=== PATIENT | male | born 1960 | race Caucasian/White ===

== ENCOUNTER 2019-09-08 12:00 | Observation (INO) ==
[2019-09-08] MEDS ORDERED: Morphine Sulfate 2 MG/ML SYRINGE IVP ONE ×2 (12:16→13:35)
[2019-09-08] MEDS ORDERED: Ondansetron 4 MG/2 ML VIAL IVP ONE (12:16)
[2019-09-08] MEDS: 0.9 % Sodium Chloride 1,000 ML IVC SCH ×2 (12:23→19:56)
[2019-09-08 12:36] LABS: Basophils # 0.1 K/mcL (0.0-0.2); Basophils % 0.6 %; Eosinophils # 0.2 K/mcL (0.0-0.6); Eosinophils % 2.1 %; Hematocrit 43.9 % (37.5-50.1); Hemoglobin 15.5 g/dL (12.9-16.9); Immature Granulocytes % 0.9 % (0-4); Lymphocytes # 2.4 K/mcL (0.6-4.6); Lymphocytes % 27.1 %; Mean Corpuscular HGB Conc 35.3 g/dL (31.6-35.5); Mean Corpuscular Hemoglobin 29.9 pg (28.0-33.3); Mean Corpuscular Volume 84.6 fL (83.0-100.0); Mean Platelet Volume 9.6 fL (9.4-12.4); Monocytes # 0.7 K/mcL (0.0-1.3); Neutrophils # 5.5 K/mcL (1.6-8.9); Platelet Count 231 K/mcL (140-400); Red Blood Count 5.19 M/mcL (4.19-5.50); Red Cell Distribution Width 15.7 % (11.5-14.5); Segmented Neutrophils % 61.3 %
[2019-09-08 12:47] LABS: Activated Partial Thrombo Time 34.6 Seconds (26.0-36.0)
[2019-09-08 12:55] LABS: Alanine Aminotransferase 14 Units/L (7-52); Albumin 3.9 g/dL (3.5-5.7); Albumin/Globulin Ratio 1.3 (1.1-2.2); Alkaline Phosphatase 89 Units/L (34-104); Aspartate Amino Transferase 12 Units/L (13-39); BUN/Creatinine Ratio 15 (6-26); Bilirubin,Total 0.5 mg/dL (0.3-1.0); Blood Urea Nitrogen 15 mg/dL (8-23); Calcium 9.7 mg/dL (8.6-10.3); Carbon Dioxide 27 mEq/L (23-29); Chloride 98 mEq/L (98-107); Creatine Kinase 58 Units/L (30-223); Globulin 3.1 g/dL (2.4-3.5); Glucose 250 mg/dL (70-105); Osmolality,Calculated 287 (280-300); Potassium 4.1 mEq/L (3.5-5.1); Sodium 134 mEq/L (136-145); eGFR For African Americans > 60 (> 60); eGFR For Non-African Americans > 60 (> 60)
[2019-09-08 12:57] LABS: Troponin I < 0.03 ng/mL (< 0.04)
[2019-09-08] MEDS ORDERED: Nitroglycerin 1 INCH/GM PACKET ONE (13:04)
[2019-09-08] MEDS: Nitroglycerin 1 INCH/GM PACKET TP ONE ×2 (13:06→13:16)
[2019-09-08] MEDS ORDERED: *HR* Dextrose 50 % in Water (Vial) 50 ML VIAL IVP PRN (17:18)
[2019-09-08] MEDS ORDERED: Dextrose Gel 15 GM/37.5 ML TUBE PO PRN ×2 (17:18)
[2019-09-08] MEDS ORDERED: D5% in Water 1,000 ML IVC PRN (17:18)
[2019-09-08] MEDS: Insulin LISPRO 300 UNITS/3 ML VIAL SQ SCH (18:05)
[2019-09-08] MEDS: Ranolazine 500 MG TAB.ER.12H PO SCH (20:37)
[2019-09-08] MEDS ORDERED: Ranolazine 500 MG TAB.ER.12H PO SCH (21:00)
[2019-09-08] MEDS ORDERED: traZODone 50 MG TABLET PO SCH (21:00)
[2019-09-08] MEDS ORDERED: Insulin LISPRO 300 UNITS/3 ML VIAL SQ SCH (21:00)
[2019-09-08] MEDS ORDERED: Insulin DETEMIR 100 UNIT/ML per UNIT SQ ONE (21:00)
[2019-09-08] MEDS ORDERED: NON-FORMULARY MEDICATION 1 EACH EACH (Insulin Aspart Prot/Insuln Asp [Novolog Mix 70-30 Fl SQ SCH (21:00)
[2019-09-08] MEDS: OMEGA ACID ETHYL ESTERS PO SCH (21:15)
[2019-09-08] MEDS: Morphine Sulfate 2 MG/ML SYRINGE IVP PRN (21:21)
[2019-09-08] MEDS: Budesonide/Formoterol 160/4.5 1 PUFF INH IH SCH (21:46)
[2019-09-09] MEDS: 0.9 % Sodium Chloride 1,000 ML IVC SCH ×2 (04:23→12:56)
[2019-09-09 06:07] LABS: Basophils % 0.6 %; Eosinophils # 0.2 K/mcL (0.0-0.6); Eosinophils % 2.4 %; Hemoglobin 13.3 g/dL (12.9-16.9); Immature Granulocytes % 0.7 % (0-4); Lymphocytes # 2.6 K/mcL (0.6-4.6); Mean Corpuscular HGB Conc 34.1 g/dL (31.6-35.5); Mean Corpuscular Hemoglobin 29.8 pg (28.0-33.3); Mean Corpuscular Volume 87.4 fL (83.0-100.0); Mean Platelet Volume 9.4 fL (9.4-12.4); Monocytes # 0.6 K/mcL (0.0-1.3); Neutrophils # 3.7 K/mcL (1.6-8.9); Platelet Count 192 K/mcL (140-400); Red Blood Count 4.46 M/mcL (4.19-5.50); Red Cell Distribution Width 15.9 % (11.5-14.5); Segmented Neutrophils % 51.3 %; White Blood Count 7.1 K/mcL (4.3-11.1)
[2019-09-09] MEDS: Morphine Sulfate 2 MG/ML SYRINGE IVP PRN (06:22)
[2019-09-09 06:26] LABS: BUN/Creatinine Ratio 13 (6-26); Blood Urea Nitrogen 13 mg/dL (8-23); Calcium 8.4 mg/dL (8.6-10.3); Carbon Dioxide 30 mEq/L (23-29); Chloride 101 mEq/L (98-107); Chol/HDL Ratio 9.3 (0-4.9); Glucose 162 mg/dL (70-105); Osmolality,Calculated 286 (280-300); Potassium 3.9 mEq/L (3.5-5.1); Sodium 136 mEq/L (136-145); eGFR For African Americans > 60 (> 60); eGFR For Non-African Americans > 60 (> 60)
[2019-09-09] MEDS ORDERED: Ondansetron 4 MG/2 ML VIAL IVP ONE (07:27)
[2019-09-09] MEDS ORDERED: Tiotropium 18 MCG inhalation IH ONE (07:43)
[2019-09-09] MEDS: Budesonide/Formoterol 160/4.5 1 PUFF INH IH SCH (07:47)
[2019-09-09] MEDS: Insulin LISPRO 300 UNITS/3 ML VIAL SQ SCH ×3 (08:15→17:13)
[2019-09-09] MEDS: OMEGA ACID ETHYL ESTERS PO SCH (08:35)
[2019-09-09] MEDS: Ranolazine 500 MG TAB.ER.12H PO SCH (08:45)
[2019-09-09 09:00] LABS: Estimated Average Glucose 249 mg/dl
[2019-09-09] MEDS ORDERED: Aspirin Enteric Coated 81 MG Tablet PO SCH (09:00)
[2019-09-09] MEDS ORDERED: Metoprolol XL (24 HR) Succ 50 MG TAB.ER.24H PO SCH (09:00)
[2019-09-09] MEDS ORDERED: amLODIPine 5 MG TABLET PO SCH (09:00)
[2019-09-09] MEDS ORDERED: Nitroglycerin 0.2 MG PATCH.TD24 TP SCH (09:00)
[2019-09-09] MEDS ORDERED: Insulin DETEMIR 100 UNIT/ML X5UNITS SQ SCH (09:00)
[2019-09-09] MEDS ORDERED: Isosorbide MONOnitrate (24 HR) 30 MG TAB.ER.24H PO SCH ×2 (09:00)
[2019-09-09] MEDS ORDERED: lisinopriL 20 MG TABLET PO SCH (09:00)
[2019-09-09] MEDS ORDERED: Tiotropium 18 MCG inhalation IH SCH (10:00)
[2019-09-09] MEDS ORDERED: Morphine Sulfate 2 MG/ML SYRINGE IVP PRN (12:11)
[2019-09-09] MEDS ORDERED: Nitroglycerin 0.4 MG TAB.SUBL SL ONE (15:17)
[2019-09-09] MEDS ORDERED: Nitroglycerin 0.4 MG TAB.SUBL SL PRN (15:22)
[2019-09-09 16:36] VITALS: BP 117/65
[2019-09-09] MEDS ORDERED: Isosorbide MONOnitrate (24 HR) 60 MG TAB.ER.24H PO SCH (21:00)
[2019-09-13] MEDS ORDERED: Ergocalciferol (VIT D2) 50,000 UNIT (1.25MG) CAP PO SCH (16:35)
== END 2019-09-09 17:41 | disposition short-term general hospital (02) ==
LOC: INPGRE 12:00 → EMEROOGRE 12:00 → INPGRE 16:12
PROVIDERS: ADMIT Family Medicine; ATTEND Family Medicine

== ENCOUNTER 2019-12-20 14:07 | Observation (INO) ==
[2019-12-20] MEDS ORDERED: 0.9 % Sodium Chloride 1,000 ML IVC ONE (14:49)
[2019-12-20] MEDS ORDERED: Metoclopramide 10 MG/2 ML VIAL IVP ONE (14:49)
[2019-12-20 15:10] LABS: Bilirubin,Urine Moderate (Negative); Blood,Urine Trace-intact (Negative); Clarity,Urine Clear (Clear); Color,Urine Amber (Yellow); Glucose,Urine (UA) Normal (Normal); Ketones,Urine Negative (Negative); Leukocyte Esterase,Urine Negative (Negative); Nitrite,Urine Negative (Negative); Protein,Urine >=300 mg/dL (Neg-Trace); Specific Gravity,Urine >= 1.030 (1.010-1.025); Urobilinogen,Urine Normal (Normal)
[2019-12-20 15:13] LABS: Basophils % 0.3 %; Eosinophils # 0.1 K/mcL (0.0-0.6); Hematocrit 44.8 % (37.5-50.1); Immature Granulocytes % 0.6 % (0-4); Lymphocytes # 2.3 K/mcL (0.6-4.6); Lymphocytes % 18.2 %; Mean Corpuscular HGB Conc 35.7 g/dL (31.6-35.5); Mean Corpuscular Hemoglobin 31.9 pg (28.0-33.3); Mean Corpuscular Volume 89.4 fL (83.0-100.0); Mean Platelet Volume 8.9 fL (9.4-12.4); Monocytes # 1.1 K/mcL (0.0-1.3); Monocytes % 8.9 %; Neutrophils # 8.8 K/mcL (1.6-8.9); Platelet Count 301 K/mcL (140-400); Red Blood Count 5.01 M/mcL (4.19-5.50); Red Cell Distribution Width 12.4 % (11.5-14.5); White Blood Count 12.4 K/mcL (4.3-11.1)
[2019-12-20 15:16] LABS: WBC,Urine 0-3 per hpf (0-3)
[2019-12-20 15:17] LABS: Amorphous Sediment,Urine Few per hpf (None-Few); Hyaline Casts,Urine Few per lpf (None Seen); RBC,Urine 0-3 per hpf (0-3); Squamous Epithelial Cell,Urine Few per hpf (None-Few)
[2019-12-20 15:18] LABS: Bacteria,Urine Moderate per hpf (None-Few)
[2019-12-20 15:29] LABS: Alanine Aminotransferase 16 Units/L (7-52); Albumin 4.1 g/dL (3.5-5.7); Albumin/Globulin Ratio 1.1 (1.1-2.2); Alkaline Phosphatase 75 Units/L (34-104); Aspartate Amino Transferase 16 Units/L (13-39); BUN/Creatinine Ratio 13 (6-26); Bilirubin,Direct 0.1 mg/dL (0.0-0.2); Bilirubin,Indirect 0.5 mg/dL (0.0-1.0); Bilirubin,Total 0.6 mg/dL (0.3-1.0); Blood Urea Nitrogen 18 mg/dL (8-23); Calcium 9.5 mg/dL (8.6-10.3); Carbon Dioxide 28 mEq/L (23-29); Chloride 95 mEq/L (98-107); Globulin 3.6 g/dL (2.4-3.5); Glucose 101 mg/dL (70-105); Lipase 12 Units/L (11-82); Osmolality,Calculated 280 (280-300); Sodium 134 mEq/L (136-145); Total Protein 7.7 g/dL (6.4-8.9); eGFR For African Americans > 60 (> 60); eGFR For Non-African Americans 50 (> 60)
[2019-12-20] MEDS ORDERED: *HR* Promethazine 25 MG/ML VIAL IVPB PRN (17:03)
[2019-12-20] MEDS ORDERED: Mag Hydrox/Al Hydrox/Simeth 30 ML UDC PO PRN (17:03)
[2019-12-20] MEDS ORDERED: Acetaminophen 325 MG TABLET PO PRN (17:03)
[2019-12-20] MEDS ORDERED: Naloxone 0.4 MG/ML INJ IVP PRN (17:03)
[2019-12-20] MEDS ORDERED: D5% in Water 1,000 ML IVC PRN (17:10)
[2019-12-20] MEDS ORDERED: *HR* Dextrose 50 % in Water (Vial) 50 ML VIAL IVP PRN (17:10)
[2019-12-20] MEDS ORDERED: Dextrose Gel 15 GM/37.5 ML TUBE PO PRN ×2 (17:10)
[2019-12-20] MEDS: Insulin LISPRO 300 UNITS/3 ML VIAL SQ SCH (18:09)
[2019-12-20] MEDS: 0.9 % Sodium Chloride 1,000 ML IVC SCH (18:47)
[2019-12-20] MEDS ORDERED: Insulin LISPRO 300 UNITS/3 ML VIAL SQ SCH (21:00)
[2019-12-20] MEDS ORDERED: traZODone 50 MG TABLET PO SCH (21:00)
[2019-12-20] MEDS: Ipratropium/Albuterol Neb 3 ML IH SCH (21:47)
[2019-12-20] MEDS: Isosorbide MONOnitrate (24 HR) 60 MG TAB.ER.24H PO SCH (22:14)
[2019-12-20] MEDS: Ranolazine 500 MG TAB.ER.12H PO SCH (22:14)
[2019-12-20] MEDS: Metoprolol XL (24 HR) Succ 50 MG TAB.ER.24H PO SCH (22:14)
[2019-12-21 02:59] LABS: Basophils % 0.3 %; Eosinophils # 0.2 K/mcL (0.0-0.6); Eosinophils % 1.7 %; Hematocrit 34.3 % (37.5-50.1); Immature Granulocytes % 0.6 % (0-4); Lymphocytes # 3.1 K/mcL (0.6-4.6); Lymphocytes % 32.5 %; Mean Corpuscular HGB Conc 35.3 g/dL (31.6-35.5); Mean Corpuscular Hemoglobin 32.2 pg (28.0-33.3); Mean Corpuscular Volume 91.2 fL (83.0-100.0); Monocytes % 10.5 %; Neutrophils # 5.2 K/mcL (1.6-8.9); Platelet Count 224 K/mcL (140-400); Red Blood Count 3.76 M/mcL (4.19-5.50); Red Cell Distribution Width 12.4 % (11.5-14.5); Segmented Neutrophils % 54.4 %; White Blood Count 9.5 K/mcL (4.3-11.1)
[2019-12-21] MEDS: 0.9 % Sodium Chloride 1,000 ML IVC SCH ×2 (03:00→11:18)
[2019-12-21 03:02] LABS: Hemoglobin 12.1 g/dL (12.9-16.9)
[2019-12-21 03:16] LABS: Alanine Aminotransferase 11 Units/L (7-52); Albumin 3.1 g/dL (3.5-5.7); Albumin/Globulin Ratio 1.1 (1.1-2.2); Alkaline Phosphatase 55 Units/L (34-104); Aspartate Amino Transferase 10 Units/L (13-39); BUN/Creatinine Ratio 14 (6-26); Bilirubin,Total 0.4 mg/dL (0.3-1.0); Blood Urea Nitrogen 18 mg/dL (8-23); Calcium 7.9 mg/dL (8.6-10.3); Carbon Dioxide 28 mEq/L (23-29); Chloride 100 mEq/L (98-107); Globulin 2.7 g/dL (2.4-3.5); Glucose 130 mg/dL (70-105); Magnesium 1.6 mg/dL (1.6-2.6); Osmolality,Calculated 282 (280-300); Phosphorous 3.3 mg/dL (2.7-4.5); Potassium 3.6 mEq/L (3.5-5.1); Sodium 134 mEq/L (136-145); Total Protein 5.8 g/dL (6.4-8.9); eGFR For African Americans > 60 (> 60); eGFR For Non-African Americans 58 (> 60)
[2019-12-21] MEDS: Ipratropium/Albuterol Neb 3 ML IH SCH ×2 (04:07→09:54)
[2019-12-21] MEDS ORDERED: *HR* Heparin 5,000 UNIT/ML VIAL IVP ONE (04:56)
[2019-12-21] MEDS ORDERED: *HR* Heparin 5,000 UNIT/ML VIAL IVP PRN ×2 (04:56)
[2019-12-21] MEDS ORDERED: Heparin 25,000UNIT/250ML 1/2NS 25,000 UNIT/250 ML IV.SOLN IVC SCH (05:00)
[2019-12-21 05:29] LABS: Hematocrit 35.2 % (37.5-50.1); Hemoglobin 12.3 g/dL (12.9-16.9); Mean Corpuscular HGB Conc 34.9 g/dL (31.6-35.5); Mean Corpuscular Hemoglobin 31.9 pg (28.0-33.3); Mean Corpuscular Volume 91.4 fL (83.0-100.0); Mean Platelet Volume 9.1 fL (9.4-12.4); Platelet Count 213 K/mcL (140-400); Red Blood Count 3.85 M/mcL (4.19-5.50); Red Cell Distribution Width 12.3 % (11.5-14.5); White Blood Count 8.9 K/mcL (4.3-11.1)
[2019-12-21 05:31] LABS: INR 1.1; Prothrombin Time 12.9 Seconds (9.4-12.1)
[2019-12-21 05:32] LABS: Heparin anti-factor XA UFH 0.17 IU/mL (0.30-0.70)
[2019-12-21] MEDS ORDERED: *HR* Enoxaparin 40 MG/0.4 ML SYRINGE SQ SCH (06:00)
[2019-12-21] MEDS: Nitroglycerin 0.2 MG PATCH.TD24 TD SCH ×2 (07:59→10:38)
[2019-12-21] MEDS: Metoprolol XL (24 HR) Succ 50 MG TAB.ER.24H PO SCH (08:11)
[2019-12-21] MEDS: Isosorbide MONOnitrate (24 HR) 60 MG TAB.ER.24H PO SCH (08:11)
[2019-12-21] MEDS: Ranolazine 500 MG TAB.ER.12H PO SCH (08:11)
[2019-12-21] MEDS: Insulin LISPRO 300 UNITS/3 ML VIAL SQ SCH ×2 (08:11→11:22)
[2019-12-21 08:23] LABS: Estimated Average Glucose 171 mg/dl
[2019-12-21] MEDS ORDERED: Aspirin Enteric Coated 81 MG Tablet PO SCH (09:00)
[2019-12-21] MEDS ORDERED: amLODIPine 5 MG TABLET PO SCH (09:00)
[2019-12-21] MEDS ORDERED: Tiotropium 18 MCG inhalation IH SCH (10:00)
[2019-12-21 11:20] VITALS: BP 123/68
[2019-12-21] MEDS ORDERED: cefTRIAXone 1,000 MG in Water for inj. (sterile) 10 ML IVP SCH (12:00)
[2019-12-21] MEDS ORDERED: *HR* HYDROcodone/Acet 5/325 mg TABLET PO PRN ×2 (13:00)
== END 2019-12-21 16:00 | disposition short-term general hospital (02) ==
LOC: INPGRE 14:07 → EMEROOGRE 14:07 → INPGRE 18:10
PROVIDERS: ADMIT Family Medicine; ATTEND Family Medicine

== ENCOUNTER 2020-11-07 15:05 | Observation (INO) ==
[2020-11-07] MEDS ORDERED: Nitroglycerin 1 INCH/GM PACKET TP ONE (15:44)
[2020-11-07] MEDS ORDERED: Ketorolac 30 MG/ML VIAL IVP ONE (15:44)
[2020-11-07] MEDS ORDERED: *HR* Promethazine 25 MG/ML VIAL IM ONE (15:45)
[2020-11-07 16:02] LABS: Basophils % 0.4 %; Eosinophils # 0.2 K/mcL (0.0-0.6); Eosinophils % 2.1 %; Hematocrit 42.3 % (37.5-50.1); Immature Granulocytes % 0.9 % (0-4); Lymphocytes % 26.9 %; Mean Corpuscular HGB Conc 35.5 g/dL (31.6-35.5); Mean Corpuscular Hemoglobin 30.9 pg (28.0-33.3); Mean Corpuscular Volume 87.2 fL (83.0-100.0); Mean Platelet Volume 9.9 fL (9.4-12.4); Monocytes # 0.9 K/mcL (0.0-1.3); Monocytes % 7.8 %; Neutrophils # 6.8 K/mcL (1.6-8.9); Platelet Count 316 K/mcL (140-400); Red Blood Count 4.85 M/mcL (4.19-5.50); Red Cell Distribution Width 12.2 % (11.5-14.5); Segmented Neutrophils % 61.9 %
[2020-11-07 16:04] LABS: Prothrombin Time 11.4 Seconds (9.4-12.1)
[2020-11-07 16:07] LABS: Activated Partial Thrombo Time 35.5 Seconds (26.0-36.0)
[2020-11-07 16:18] LABS: BUN/Creatinine Ratio 15 (6-26); Blood Urea Nitrogen 17 mg/dL (8-23); Calcium 8.7 mg/dL (8.6-10.3); Carbon Dioxide 25 mEq/L (23-29); Chloride 93 mEq/L (98-107); Glucose 406 mg/dL (70-105); Osmolality,Calculated 287 (280-300); Potassium 3.8 mEq/L (3.5-5.1); Sodium 129 mEq/L (136-145); Troponin I < 0.03 ng/mL (< 0.04); eGFR For African Americans > 60 (> 60); eGFR For Non-African Americans > 60 (> 60)
[2020-11-07] MEDS ORDERED: 0.9 % Sodium Chloride 1,000 ML IVC ONE (16:28)
[2020-11-07] MEDS ORDERED: Insulin Regular, Human 100 UNIT/ML SUBQ ONE (16:28)
[2020-11-07] MEDS ORDERED: Naloxone 0.4 MG/ML INJ IVP PRN ×2 (17:48→18:41)
[2020-11-07] MEDS ORDERED: D5% in Water 1,000 ML IVC PRN ×3 (17:50→20:11)
[2020-11-07] MEDS ORDERED: *HR* Dextrose 50 % in Water (Vial) 50 ML VIAL IVP PRN ×3 (17:50→20:11)
[2020-11-07] MEDS ORDERED: Dextrose Gel 15 GM/37.5 ML TUBE PO PRN ×6 (17:50→20:11)
[2020-11-07] MEDS ORDERED: Ipratropium/Albuterol Neb 3 ML IH PRN (18:41)
[2020-11-07] MEDS: *HR* HYDROcodone/Acet 5/325 mg TABLET PO PRN (19:15)
[2020-11-07] MEDS: Magnesium Oxide 400 MG TABLET PO SCH (19:16)
[2020-11-07] MEDS: Insulin DETEMIR 100 UNIT/ML X5UNITS SUBQ SCH (20:56)
[2020-11-07] MEDS ORDERED: Insulin LISPRO 300 UNITS/3 ML VIAL SUBQ SCH ×3 (21:00)
[2020-11-07] MEDS ORDERED: Insulin NPH/REG 70/30 300 UNIT/3 ML per UNIT SUBQ ONE (21:00)
[2020-11-07] MEDS ORDERED: traZODone 50 MG TABLET PO SCH (21:00)
[2020-11-07] MEDS: Budesonide/Formoterol 160/4.5 1 PUFF INH IH SCH (21:19)
[2020-11-08] MEDS: *HR* HYDROcodone/Acet 5/325 mg TABLET PO PRN ×2 (05:26→18:13)
[2020-11-08 05:45] LABS: Chol/HDL Ratio 10.6 (0-4.9); Cholesterol 328 mg/dL (< 200); HDL Cholesterol 31 mg/dL (40-59); Triglycerides 529 mg/dL (< 150)
[2020-11-08] MEDS ORDERED: *HR* Enoxaparin 40 MG/0.4 ML SYRINGE SQ SCH (06:00)
[2020-11-08] MEDS ORDERED: Insulin LISPRO 300 UNITS/3 ML VIAL SUBQ SCH ×2 (07:30)
[2020-11-08] MEDS ORDERED: Metoprolol XL (24 HR) Succ 50 MG TAB.ER.24H PO SCH (08:00)
[2020-11-08 08:33] LABS: Estimated Average Glucose 312 mg/dl; Hemoglobin A1C 12.5 %
[2020-11-08] MEDS ORDERED: NON-FORMULARY MEDICATION 1 EACH EACH (Insulin Degludec [Tresiba Flextouch U-200] 200 UNIT/ SQ SCH (09:00)
[2020-11-08] MEDS ORDERED: Ranolazine 500 MG TAB.ER.12H PO SCH (09:00)
[2020-11-08] MEDS ORDERED: Furosemide 20 MG TABLET PO SCH (09:00)
[2020-11-08] MEDS ORDERED: Isosorbide MONOnitrate (24 HR) 30 MG TAB.ER.24H PO SCH (09:00)
[2020-11-08] MEDS ORDERED: amLODIPine 5 MG TABLET PO SCH (09:00)
[2020-11-08] MEDS ORDERED: Aspirin Enteric Coated 81 MG Tablet PO SCH (09:00)
[2020-11-08] MEDS ORDERED: Insulin NPH/REG 70/30 100 UNIT/ML (x5UNIT) SUBQ SCH (09:00)
[2020-11-08] MEDS: Insulin DETEMIR 100 UNIT/ML X5UNITS SUBQ SCH (09:30)
[2020-11-08] MEDS: Magnesium Oxide 400 MG TABLET PO SCH (09:30)
[2020-11-08] MEDS: Insulin LISPRO 300 UNITS/3 ML VIAL SUBQ SCH ×3 (09:31→17:42)
[2020-11-08] MEDS ORDERED: Tiotropium 10 INH DOSE IH SCH (10:00)
[2020-11-08] MEDS: Budesonide/Formoterol 160/4.5 1 PUFF INH IH SCH (10:35)
[2020-11-08] MEDS ORDERED: Isosorbide MONOnitrate (24 HR) 30 MG TAB.ER.24H PO ONE (13:15)
[2020-11-08] MEDS: Nitroglycerin 0.4 MG TAB.SUBL SL PRN ×2 (13:29→13:41)
[2020-11-08 13:40] VITALS: RESP 16
[2020-11-08 14:09] LABS: BUN/Creatinine Ratio 15 (6-26); Blood Urea Nitrogen 16 mg/dL (8-23); Calcium 8.2 mg/dL (8.6-10.3); Carbon Dioxide 24 mEq/L (23-29); Chloride 99 mEq/L (98-107); Glucose 305 mg/dL (70-105); Osmolality,Calculated 287 (280-300); Potassium 3.6 mEq/L (3.5-5.1); Sodium 132 mEq/L (136-145); eGFR For African Americans > 60 (> 60); eGFR For Non-African Americans > 60 (> 60)
[2020-11-08] MEDS ORDERED: *HR* Heparin 5,000 UNIT/ML VIAL IVP PRN ×2 (17:01)
[2020-11-08] MEDS ORDERED: *HR* Heparin 5,000 UNIT/ML VIAL IVP ONE (17:01)
[2020-11-08] MEDS ORDERED: Heparin 25,000UNIT/250ML 1/2NS 25,000 UNIT/250 ML IV.SOLN IVC SCH (17:15)
[2020-11-08 17:49] VITALS: TEMP 97.9; O2SAT 91
[2020-11-08 18:16] VITALS: BP 114/67; PULSE 70
[2020-11-09] MEDS ORDERED: Isosorbide MONOnitrate (24 HR) 30 MG TAB.ER.24H PO SCH (09:00)
== END 2020-11-08 18:34 | disposition short-term general hospital (02) ==
LOC: EMEROOGRE 15:05 → INPGRE 15:05
PROVIDERS: ADMIT Family Medicine; ATTEND Family Medicine